=== PATIENT | female | born 1945 | race Two or more races ===

== ENCOUNTER 2023-03-17 11:03 | Emergency (ER) | payer OTHER ==
[~2023-03-17] VITALS: Ht 152.4 cm; Wt 63.5 kg
[2023-03-17] MEDS ORDERED: CLARITIN5 MG (11:53)
[2023-03-17] MEDS ORDERED: AMLODIPINE-OLM1 EAC2 (11:53)
[2023-03-17] MEDS ORDERED: ATACAND32 MG (11:53)
[2023-03-17] MEDS ORDERED: GLUMETZA500 MG (11:53)
[2023-03-17] MEDS ORDERED: SINGULAIR10 MG PO (11:54)
[2023-03-17 15:00] LABS: HEMATOCRIT 38.4 % (36.0-45.00); HEMOGLOBIN 13.1 g/dL (12.0-15.00); MEAN CELL VOLUME 83.8 fL (80.00-100.00); MEAN CORPUSCULAR HEMOGLOBIN 28.6 pg (27.00-32.0); MEAN CORPUSCULAR HGB CONC 34.1 g/dl (32.0-36.0); PLATELET COUNT 280 K/uL (150-450); RED BLOOD COUNT 4.58 M/uL (4.00-6.00); RED CELL DISTRIBUTION WIDTH 15.3 % (11.5-14.5)
[2023-03-17 15:22] LABS: CALCIUM 9.9 mg/dL (8.5-10.1); CREATININE SERUM 0.85 mg/dL (0.55-1.02); GFR 64.85; POTASSIUM 4.98 mEq/L (3.5-5.1)
== END 2023-03-17 16:52 | disposition home or self-care (01) ==
LOC: ER 11:04
PROVIDERS: General Practice
DX: J45.901 Unspecified asthma with (acute) exacerbation (principal); Z91.013 Allergy to seafood; Z88.6 Allergy status to analgesic agent; Z20.822 Contact with and (suspected) exposure to COVID-19
CPT/HCPCS: 36415; 94640; 96365; 99284; J2930